=== PATIENT | male | born 1965 | race Caucasian/White ===

== ENCOUNTER 2022-03-17 17:01 | Emergency (ER) | payer BC ==
[2022-03-18] MEDS ORDERED: Ipratropium Bromide 2.5 ml Neb ONE (20:49)
== END 2022-03-17 21:56 | disposition short-term general hospital (02) ==
LOC: CSHERS 17:01
DX: M21.372 Foot drop, left foot (principal); M21.371 Foot drop, right foot; M51.86 Other intervertebral disc disorders, lumbar region; I10 Essential (primary) hypertension
CPT/HCPCS: 72148